=== PATIENT | female | born 1980 | race Caucasian/White ===

== ENCOUNTER 2016-09-30 03:01 | Emergency (ER) | payer MEDICAID ==
[~2016-09-30] VITALS: Ht 154.9 cm; Wt 59.6 kg
[2016-09-30 03:02] VITALS: Ht 154.9 cm; Wt 59.6 kg
[2016-09-30] MEDS ORDERED: ACET/BUTAL/CAFF/CODEINE CAP PO ONE (03:30)
--- NOTE | 2016-09-30 03:47 | ERD ---
ER Documentation Chief Complaint Date/Time DATE: 09/30/16 TIME: 03:45 Chief Complaint HEADACHE X 5 DAYS HPI 36-year-old female or sensory in emergency department for complaints of headache for 5 days. Patient is complaining of headache, throbbing pain, 8/10 scale, not better or worse with anything. Patient took some ibuprofen for pain when not getting. Patient denies any head injury. Patient denies any blurry vision, focal weakness numbness or tingling. Patient denies any fever or chills. Patient denies any neck pain. ROS All systems reviewed and are negative except as per history of present illness. Medications Home Meds Reported Medications [None] No Conflict Check 05/12/13 Allergies Allergies: Coded Allergies: No Known Allergy (Verified , 05/12/13) PMhx/Soc History of Surgery: Yes (CHOLECYSTECTOMY) Anesthesia Reaction: No Hx Neurological Disorder: No Hx Respiratory Disorders: No Hx Cardiac Disorders: No Hx Psychiatric Problems: No Hx Miscellaneous Medical Probl: No Hx Alcohol Use: No Hx Substance Use: No Hx Tobacco Use: No Smoking Status: Never smoker FmHx Family History: No coronary disease, No diabetes, No other Physical Exam Vitals Vital Signs Date Time Temp Pulse Resp B/P Pulse Ox O2 Delivery O2 Flow Rate FiO2 09/30/16 03:02 96.3 71 18 133/64 97 Physical Exam GENERAL: The patient is well developed and appropriate for usual state of health, in no apparent distress. CHEST: Clear to auscultation bilaterally. There are no rales, wheezes or rhonchi. HEART: Regular rate and rhythm. No murmurs, clicks, rubs or gallops. No S3 or S4. ABDOMEN: Soft, nontender and nondistended. Good bowel sounds. No rebound or guarding. No gross peritonitis. No gross organomegaly or masses. No Mayfield sign or McBurney point tenderness. BACK: No midline or flank tenderness. EXTREMITIES: Equal pulses bilaterally. There is no peripheral clubbing, cyanosis or edema. No focal swelling or erythema. Full range of motion. Grossly neurovascularly intact. NEURO: Alert and oriented. Cranial nerves 2-12 intact. Motor strength in all 4 extremities with 5/5 strength. Sensation grossly intact. Normal speech and gait. Negative Romberg sign. Negative pronator drift. SKIN: There is no apparent rash or petechia. The skin is warm and dry. HEMATOLOGIC AND LYMPHATIC: There is no evidence of excessive bruising or lymphedema. No gross cervical, axillary, or inguinal lymphadenopathy. Results 24 hrs Current Medications Medications (Trade) Dose Ordered Sig/Leander Route PRN Reason Start Time Stop Time Status Last Admin Dose Admin Acetam/Butalbital/ Caffeine/Codeine (Fioricet/ Codeine) 1 cap ONCE ONCE PO 09/30/16 03:30 09/30/16 03:31 DC 09/30/16 03:50 Patient was given medication for pain here in emergency department, after treatment, patient verbalized feeling much better. Patient's pain is improved. PROCEDURE: CT BRAIN WITHOUT CONTRAST CLINICAL INDICATION: 36-year-old female with headaches. TECHNIQUE: The study was performed utilizing a [employer] VCT 64-slice CT scanner. Direct axial sections were obtained from the foramen magnum to the vertex without the use of intravenous contrast material. Sagittal and coronal reformations were obtained. Automated exposure control and iterative reconstruction techniques were utilized for this examination. The images were viewed on a PACS workstation. CTD/vol = 39.6 mGy; Total Exam DLP = 634.2 mGy- cm. COMPARISON: None. FINDINGS: The ventricles have a normal size, shape and position. There is no evidence for mass effect or midline shift. There are no intracranial areas of abnormal attenuation. There is no evidence for acute intra or extra-axial blood. The bony calvarium is intact. There is mild mucosal thickening within the right maxillary sinus. No air-fluid levels are noted. The mastoid air cells are without significant soft tissue. IMPRESSION: 1. The intracranial contents are unremarkable on this noncontrast CT scan of the brain. 2. Mild mucosal thickening right maxillary sinus. .Cb Andrew MD, Date Time Electronically viewed and signed by .Cb Andrew MD, on 09/30/2016 04:42 .M/ CC: RYLEE CHRISTINE NP Procedures/MDM Medical Decision Making: Patient's headache most likely consistent with tension headache or migraine headache. There is low suspicion for neurological emergencies at this time since patients neurologic exam is normal. Patient did not have any altered level consciousness, vomiting, changes in balance or memory and did not have any head injury. Patients CT scan of the head does not show any neurological emergencies at this time. Prescription given for appears that with codeine, Zofran to follow-up with primary care doctor in 2-3 days reevaluation of symptoms. Patient is advised to return to emergency department for worsening symptoms. Departure Diagnosis: Primary Impression: Headache Headache type: unspecified Headache chronicity pattern: acute headache Intractability: not intractable Qualified Code: R51 - Acute nonintractable headache, unspecified headache type Condition: Stable Patient Instructions: Self-Care for Headaches RYLEE CHRISTINE NP Sep 30, 2016 03:47
--- NOTE | 2016-09-30 04:42 | RADRPT ---
PROCEDURE: CT BRAIN WITHOUT CONTRAST CLINICAL INDICATION: 36-year-old female with headaches. TECHNIQUE: The study was performed utilizing a [employer] VCT 64-slice CT scanner. Direct axia l sections were obtained from the foramen magnum to the vertex without the use of intravenous contra st material. Sagittal and coronal reformations were obtained. Automated exposure control and iterat madi reconstruction techniques were utilized for this examination. The images were viewed on a PACS workstation. CTD/vol = 39.6 mGy; Total Exam DLP = 634.2 mGy-cm. COMPARISON: None. FINDINGS: The ventricles have a normal size, shape and position. There is no evidence for mass effect or midl ine shift. There are no intracranial areas of abnormal attenuation. There is no evidence for acute intra or extra-axial blood. The bony calvarium is intact. There is mild mucosal thickening within t he right maxillary sinus. No air-fluid levels are noted. The mastoid air cells are without signifi cant soft tissue. IMPRESSION: 1. The intracranial contents are unremarkable on this noncontrast CT scan of the brain. 2. Mild mucosal thickening right maxillary sinus. .Cb Andrew MD, MD Date Time Electronically viewed and signed by .Cb Andrew MD, on 09/30/2016 04:42 .M/
[2016-09-30] MEDS ORDERED: FIORICET PO (04:55)
[2016-09-30 05:20] VITALS: BP 109/69; PULSE 89; RESP 20; TEMP 98
== END 2016-09-30 05:22 | disposition home or self-care (01) ==
LOC: FTE 03:01
DX: R51 Headache (principal)
CPT/HCPCS: 70450; Z7502; Z7610